=== PATIENT | male | born 1975 | race Caucasian/White ===

== ENCOUNTER 2025-01-04 08:02 | Emergency (ER) | payer MEDICAID ==
[~2025-01-04] VITALS: Ht 172.7 cm; Wt 89.4 kg
[2025-01-04 08:05] VITALS: TEMP 98
[2025-01-04 08:36] LABS: BASOPHILS # (AUTO) 0.1 X10'3 (0-0.2); BASOPHILS % (AUTO) 0.7 % (0-1); EOSINOPHILS # (AUTO) 0.1 X10'3 (0-0.9); HEMATOCRIT 42.5 % (42.0-52.0); HEMOGLOBIN 14.1 g/dl (14.0-17.9); LYMPHOCYTES # (AUTO) 3.9 X10'3 (1.1-4.8); LYMPHOCYTES % (AUTO) 51.6 % (21-51); MEAN CORPUSCULAR HEMOGLOBIN 26.1 PG (27.0-31.0); MEAN CORPUSCULAR HGB CONC 33.3 g/dL (33.0-36.5); MEAN CORPUSCULAR VOLUME 78.4 FL (78-98); MEAN PLATELET VOLUME 7.5 FL (7.4-10.4); MONOCYTES # (AUTO) 0.8 X10'3 (0-0.9); MONOCYTES % (AUTO) 10.2 % (2-12); NEUTROPHILS # (AUTO) 2.7 X10'3 (1.8-7.7); NEUTROPHILS % (AUTO) 36.5 % (42-75); PLATELET COUNT 246 X10'3 (140-440); RED BLOOD COUNT 5.42 X10'6 (4.70-6.10); RED CELL DISTRIBUTION WIDTH 15.5 % (11.5-14.5); WHITE BLOOD COUNT 7.5 X10'3 (4.5-11.0)
[2025-01-04 08:40] LABS: BILIRUBIN,URINE NEGATIVE (Neg); CLARITY,URINE CLEAR (Clear); COLOR,URINE YELLOW (Yellow); GLUCOSE, URINE NEGATIVE (Neg); KETONES,URINE NEGATIVE (Neg); LEUKOCYTE ESTERASE ,URINE NEGATIVE (Neg); NITRITES, URINE NEGATIVE (Neg); OCCULT BLOOD,URINE NEGATIVE (Neg); PROTEIN,URINE NEGATIVE (Neg); UROBILINOGEN,URINE 0.2 E.U/dL (0.2-1.0)
[2025-01-04 08:44] LABS: ALANINE AMINOTRANSFERASE 43 U/L (12-78); ALBUMIN 3.5 G/DL (3.4-5.0); ALKALINE PHOSPHATASE 105 IU/L (46-116); ANION GAP 4 (8-16); ASPARTATE AMINO TRANSFERASE 34 U/L (10-37); BILIRUBIN,TOTAL 0.5 MG/DL (0.1-1.0); BLOOD UREA NITROGEN 13 MG/DL (7-18); BUN/CREATININE RATIO 15.3 (10.0-20.0); CALCIUM 8.5 MG/DL (8.5-10.1); CHLORIDE 105 MMOL/L (99-107); CREATININE 0.85 MG/DL (0.60-1.10); GLUCOSE 109 MG/DL (70-104); LIPASE 22 U/L (16-77); POTASSIUM 4.6 MMOL/L (3.5-5.1); SODIUM 141 MMOL/L (135-145); eCRCL 103 ML/MIN; eGFR > 90 ML/MIN
[2025-01-04 08:56] LABS: UA COLLECTION TYPE CLN CATCH MIDSTREAM
[2025-01-04 09:17] LABS: PLATELET ESTIMATE NORMAL; TOTAL CELLS COUNTED 100
[2025-01-04] MEDS: ketorolac trometh 15mg/ml vial 15 MG/ML ML IM ONE (09:54)
--- NOTE | 2025-01-04 10:57 | RADIOLOGY REPORT ---
Exam: CT CT ABDOMEN PELVIS History: Abdominal Pain Comparison Study: None Technique: Multidetector spiral CT of the abdomen and pelvis was performed from lung bases to pubic symphysis. Imaging was performed without IV contrast. Axial, coronal and sagittal multiplanar reform ats were obtained from the axial data set by the technologist. Radiation dose : Abdomen/Pelvis: CTDIvol 22 mGy, DLP 1189 mGy*cm. Findings: Evaluation of solid organs is limited due to lack of intravenous contrast use. Lung Bases: No acute or significant lung base finding. Normal heart size. No pleural or pericardial effusion. Liver: Subtle hypodensity in the periphery of the right lobe of the liver measuring up to 13 mm is no nspecific. Gallbladder and biliary Tree: Unremarkable Spleen: Enlarged Pancreas: The pancreas is grossly normal in appearance. Adrenal Glands: Unremarkable Kidneys: Kidneys are grossly normal without calculi or hydronephrosis. Bladder: Grossly unremarkable for degree of distention. Bowel: The stomach is grossly normal in appearance. Small bowel and colon are normal in caliber and d istribution. Normal appendix is visualized in the right lower quadrant without findings of appendicit is. Ascites: Absent Lymphadenopathy: Subcentimeter mesenteric and inguinal lymph nodes are nonspecific. Abdominal wall and Mesentery: Unremarkable. Vasculature: The visualized abdominal aorta is normal in size and caliber. Evaluation of abdominal a nd pelvic vessels is limited due to lack of intravenous contrast. Pelvic Organs: Unremarkable Musculoskeletal: No aggressive focal bony lesions, acute fractures or dislocation. IMPRESSION: 1. No definite acute abdominal or pelvic findings. 2. Subtle hypodensity in the periphery of the right lobe of the liver is nonspecific. This can be fur ther evaluated with MRI of the abdomen with contrast. 3. Splenomegaly. Prominent but subcentimeter mesenteric and inguinal lymph nodes. Findings could be r eactive. A lymphoproliferative disorder is not excluded. Clinical correlation and continued follow-u p is recommended. Radiation optimization: All CT scans at this facility use at least one of these dose optimization mikala hniques: Automated exposure control mA and/or kV adjustment per patient size (includes targeted exams where dose is matched to clinical indication) or iterative reconstruction. HS:Y
--- NOTE | 2025-01-04 11:08 | Physician Documentation ---
History of Present Illness ~ Chief Complaint: Abdominal Pain Stated Complaint: ABD PAIN Time Seen by MD: 08:28 Source: patient Mode of Arrival: Ambulatory Exam Limitations: no limitations HPI Chief Complaint: abdominal pain. Caveat: None Independent Historians: History of Present Illness: Patient is a 49-year-old man who comes in complaining of burning pain around his flanks and abdomen. This pain began three days ago and has gotten progressively worse. The pain is severe and described as burning. It is constant. There are no alleviating or exacerbating factors. Patient denies any fever. No nausea vomiting. No rash. Review of systems: All systems were reviewed and are negative except for what is indicated in the history of present illness. Patient was had diarrhea for four months. He thought it was maybe secondary to coming off of Suboxone. Past Medical History: None Past Surgical History: None Social History: History of heroin abuse however he has been sober/clean. Patient has stopped using Suboxone in August of this year. Medications: Reviewed as documented Nursing Notes Allergies: Reviewed as documented in Nursing Notes Medication Reconciliation Allergies: Coded Allergies: No Known Allergies (Unverified , 01/04/25) Past Medical History Smoking Status: Current every day smoker Review of Systems All Other Systems at this time: Reviewed and Negative ROS Patient denies any other acute symptoms other than above. All other systems are negative Physical Exam Vital Signs: RN Vital Signs have been reviewed: Yes, Temperature: 98.0, Source: Oral, Heart Rate: 65, Respiratory Rate: 20, BP: 118/84, Pulse Oximetry: 98, Weight: 89.400 Oxygen Flow Rate: 0 Pulse Oximetry Reflects: adequate oxygenation Physical Exam General Appearance: No distress HEENT: Normal OP, moist oral mucosa, PERRL, EOMI Neck: supple, normal ROM, trachea midline Pulmonary: No respiratory distress, CTA, BS equal Cardiac: RRR, no murmur, rub or gallop, GI: nondistended, soft, nontender, normal bowel sounds, no guarding, no rebound : Rectal: Back: Extremities: normal ROM, no swelling, non-tender Skin: intact, dry, warm, no rashes Neuro: AAOx3, speech is clear, no focal motor weakness Psych: normal affect, good eye contact, no apparent hallucination, normal speech Progress Results/Orders Results/Orders Orders - MARIAJOSE BRINK MD Ct Abdomen Pelvis (01/04/25 09:36) Completed Orders - MARIAJOSE BRINK MD Urinalysis, Cult If Indicated (01/04/25 08:09) Cbc/Diff (01/04/25 08:09) BMP (01/04/25 08:09) Lipase (01/04/25 08:09) CMP (01/04/25 08:09) Man Diff (01/04/25 08:19) Ketorolac Trometh 15mg/Ml Vial (Toradol (01/04/25 09:40) Ct Abdomen Pelvis (01/04/25 09:36) Medications Received in ER Medications (Trade) Dose Ordered Sig/Gisela Route PRN Reason Start Time Stop Time Status Last Admin Dose Admin (Toradol injection) 15 mg ONCE ONCE IM 01/04/25 09:40 01/04/25 09:41 DC 01/04/25 09:54 15 MG Vital Signs 01/04/25 01/04/25 01/04/25 08:05 09:45 09:54 Temp 98.0 Pulse 65 Resp 16 20 B/P (MAP) 118/84 Pulse Ox 98 O2 Flow Rate 0 Laboratory Tests Test 01/04/25 08:09 01/04/25 08:19 Urine Specimen Description Cln catch midstream Urine Color Yellow Urine Clarity Clear Urine pH 8.0 Urine Specific [place] 1.020 Urine Protein Negative Urine Glucose (UA) Negative Urine Ketones Negative Urine Occult Blood Negative Urine Nitrite Negative Urine Bilirubin Negative Urine Urobilinogen 0.2 Urine Leukocyte Esterase Negative Urine Culture Indicated Not ind Volume Urine Centrifuged 10 ml Urine Comment White Blood Count 7.5 Red Blood Count 5.42 Hemoglobin 14.1 Hematocrit 42.5 Mean Corpuscular Volume 78.4 Mean Corpuscular Hemoglobin 26.1 L Mean Corpuscular Hemoglobin Concent 33.3 Red Cell Distribution Width 15.5 H Platelet Count 246 Mean Platelet Volume 7.5 Neutrophils (%) (Auto) 36.5 L Lymphocytes (%) (Auto) 51.6 H Monocytes (%) (Auto) 10.2 Eosinophils (%) (Auto) 1.0 Basophils (%) (Auto) 0.7 Neutrophils # (Auto) 2.7 Lymphocytes # (Auto) 3.9 Monocytes # (Auto) 0.8 Eosinophils # (Auto) 0.1 Basophils # (Auto) 0.1 CBC Comment Differential Total Cells Counted 100 Neutrophils % (Manual) 41.0 L Lymphocytes % (Manual) 45.0 Monocytes % (Manual) 10.0 Eosinophils % (Manual) 2.0 Reactive Lymphocytes 2.0 H Platelet Estimate Normal Red Blood Cell Morphology Normal Basophilic Stippling Sodium Level 141 Potassium Level 4.6 Chloride Level 105 Carbon Dioxide Level 32.0 Anion Gap 4 L Blood Urea Nitrogen 13 Creatinine 0.85 Estimated GFR/1.73 m2 > 90 BUN/Creatinine Ratio 15.3 Glucose Level 109 H Calcium Level 8.5 Total Bilirubin 0.5 Aspartate Amino Transf (AST/SGOT) 34 Alanine Aminotransferase (ALT/SGPT) 43 Alkaline Phosphatase 105 Total Protein 7.0 Albumin 3.5 Globulin 3.5 Albumin/Globulin Ratio 1.0 L Lipase 22 Chemistry Comments Medical Decision Making Findings Differential diagnosis includes but is not limited to: Shingles, intra- abdominal infection, ureteral colic EKG independent interpretation: Chest x-ray, single view, indication: Independent interpretation: Laboratory data independent interpretation: CBC: Unremarkable CMP: Normal Urinalysis: Normal Emergency department course/medical decision-making: Patient presents with unusual type pain that he describes as burning within his abdomen. Patient has a completely normal abdominal exam. He is afebrile and hemodynamically stable. Lab work is normal. Patient does have a lymphocytosis. Potential causes for his pain could be an early cancer. Gastric cancer, lymphoma and pancreatic cancer are potential causes. Test results and treatment plan reviewed with the patient. Patient got moderate relief with the Toradol. Recommend outpatient follow up with his primary care doctor for further outpatient workup for cancer. This may include endoscopy, colonoscopy, MRI of the abdomen and pelvis and additional and repeat blood work. Departure Time of Disposition: 11:19 Disposition: HOME / SELF CARE / HOMELESS Impression: Primary Impression: Abdominal pain Qualified Codes: R10.84 - Generalized abdominal pain Additional Impression: Splenomegaly Condition: Stable Discharge Instructions: Abdominal Pain, Adult, [id number] Additional Instructions: YOU ARE FOUND TO HAVE SPLENOMEGALY WHICH IS AN ENLARGED SPLEEN. YOU ALSO WERE FOUND TO HAVE SOME REACTIVE LYMPH NODES IN THE ABDOMEN AND PELVIS CT SCAN. RECOMMEND FURTHER OUTPATIENT WORKUP FOR THE CAUSE OF YOUR LARGE SPLEEN. DIAGNOSES TO CONSIDER INCLUDE BUT ISN'T LIMITED TO: LYMPHOMA, GASTRIC CANCER, PANCREATIC CANCER YOU MAY USE ADVIL AND/OR TYLENOL WITH FOOD FOR SEVERE PAIN. Referrals: NO PRIMARY CARE PROVIDER (PCP) Education Educated: Patient, Family Educated regarding: diagnosis, treatment, need for follow up MARIAJOES BRINK MD January 04, 2025 11:08
[2025-01-04 12:44] VITALS: BP 141/89; PULSE 64; RESP 16; O2SAT 99
== END 2025-01-04 12:46 | disposition home or self-care (01) ==
LOC: ER 08:03
DX: R16.1 Splenomegaly, not elsewhere classified (principal); F17.200 Nicotine dependence, unspecified, uncomplicated
CPT/HCPCS: 36415; 74176; 80053; 81003; 83690; 85025; 96372; 99285; J1885; 85007